=== PATIENT | female | born 1990 | race American Indian/Alaskan Native ===

== ENCOUNTER 2018-05-09 09:37 | Emergency (ER) | payer SELFPAY ==
[2018-05-09 09:47] VITALS: BP 103/59
--- NOTE | 2018-05-09 12:03 | Emergency Department Report ---
ED Extremity Problem HPI - General Chief complaint: Extremity Problem,Nontraumatic Stated complaint: LEFT HAND PAIN Time Seen by Provider: 05/09/18 11:34 Source: patient Mode of arrival: Ambulatory Limitations: No Limitations - History of Present Illness Initial comments: Patient is a 27-year-old black female who Injury to the left wrist the resulted in some tendons being injured. Patient was seeding her anymore hospital has stitches placed on the wound. Patient is unable to move the wrists and the accident occurred. Patient has a splint in place. Patient has run out of her pain medicines but also states that the splint is hurting. Patient has 10 out of 10 pain is throbbing pain in the left upper extremity. - Related Data Previous Rx's Medication Instructions Recorded Last Taken Type Ketorolac [Toradol] 10 mg PO Q6H PRN #14 tablet 05/09/18 Unknown Rx Allergies Allergy/AdvReac Type Severity Reaction Status Date / Time No Known Allergies Allergy Unverified 04/26/16 15:44 ED Review of Systems ROS: Stated complaint: LEFT HAND PAIN Other details as noted in HPI Comment: All other systems reviewed and negative ED Past Medical Hx - Past Medical History Previous Medical History?: No Additional medical history: chronic right knee pain - Surgical History Past Surgical History?: No Additional Surgical History: - Social History Smoking Status: Current Every Day Smoker Substance Use Type: None - Medications Home Medications: Home Medications Medication Instructions Recorded Confirmed Last Taken Type Ketorolac [Toradol] 10 mg PO Q6H PRN #14 tablet 05/09/18 Unknown Rx ED Physical Exam - General Limitations: No Limitations General appearance: alert, in no apparent distress - Head Head exam: Present: atraumatic, normocephalic - Eye Eye exam: Present: normal appearance - ENT ENT exam: Present: mucous membranes moist - Neck Neck exam: Present: normal inspection - Respiratory Respiratory exam: Present: normal lung sounds bilaterally. Absent: respiratory distress - Cardiovascular Cardiovascular Exam: Present: regular rate, normal rhythm. Absent: systolic murmur, diastolic murmur, rubs, gallop - GI/Abdominal GI/Abdominal exam: Present: soft, normal bowel sounds - Extremities Exam Extremities exam: Absent: normal inspection (patient's left wrist has a very bulky splint in place. Magan wrap is very tight on the hand. After unwrapping the dressing. Patient has a wound on the volar surface of the left wrist the wound is clean dry and intact. There is no surrounding erythema. Stitches are in place and are holding very well.) - Back Exam Back exam: Present: normal inspection - Neurological Exam Neurological exam: Present: alert, oriented X3 - Psychiatric Psychiatric exam: Present: normal affect, normal mood - Skin Skin exam: Present: warm, dry, intact, normal color. Absent: rash ED Course Vital Signs 05/09/18 09:44 Temperature 98.1 F Pulse Rate 72 Respiratory 18 Rate Blood Pressure 103/59 O2 Sat by Pulse 99 Oximetry ED Medical Decision Making - Medical Decision Making Patient had a history relief after undressing the patient's wound. A Ortho- Glass splint was applied patient states that she felt much improved. Because of tendon injury patient may have been having difficulty holding the very heavy plaster splint. Patient be given a Vicodin here in the emergency department and sent home with Toradol. Patient can follow-up with her orthopedic doctor regarding continuation of narcotics. Critical care attestation.: If time is entered above; I have spent that time in minutes in the direct care of this critically ill patient, excluding procedure time. ED Disposition Clinical Impression: Encounter for wound care Disposition: [id number]-01 TO HOME OR SELFCARE Is pt being admited?: No Does the pt Need Aspirin: No Condition: Stable Prescriptions: Ketorolac [Toradol] 10 mg PO Q6H PRN #14 tablet PRN Reason: Pain Referrals: PRIMARY CARE, [Primary Care Provider] - 3-5 Days
== END 2018-05-09 12:22 | disposition home or self-care (01) ==
LOC: ED 09:37
DX: M25.532 Pain in left wrist (principal); F17.200 Nicotine dependence, unspecified, uncomplicated
CPT/HCPCS: 99282

== ENCOUNTER 2018-08-16 10:45 | Emergency (ER) | payer SELFPAY ==
[2018-08-16] MEDS ORDERED: ZOFRAN ODT PO ONE (12:52)
--- NOTE | 2018-08-16 12:56 | Emergency Department Report ---
ED General Adult HPI - General Chief complaint: Upper Respiratory Infection Stated complaint: HEAD/THROAT/BACK/STOMACH PAIN Time Seen by Provider: 08/16/18 12:52 Source: patient Mode of arrival: Ambulatory Limitations: No Limitations - History of Present Illness Initial comments: Patient reports sudden onset of chills, headache, N/V/D, abdominal pain, sore throat and cough that started two days ago MD Complaint: viral or bacteria syndrome Onset/Timin -: days(s) Location: chest (throat), back, abdomen Radiation: abdomen Severity scale (0 -10): 9 Quality: other (throbbing) Consistency: constant Improves with: none Worsens with: movement Associated Symptoms: cough, fever/chills, headaches, nausea/vomiting. denies: confusion, chest pain, diaphoresis, loss of appetite, malaise, rash, seizure, shortness of breath, syncope, weakness Treatments Prior to Arrival: NSAID - Related Data Previous Rx's Medication Instructions Recorded Last Taken Type Ketorolac [Toradol] 10 mg PO Q6H PRN #14 tablet 05/09/18 Unknown Rx Acetaminophen/Codeine [Tylenol 1 tab PO Q6H PRN #10 tab 08/16/18 Unknown Rx /Codeine # 3 tab] Benzonatate [Tessalon Perles] 100 mg PO Q8HR #15 capsule 08/16/18 Unknown Rx Nitrofurantoin Monohyd/M-Cryst 100 mg PO BID #14 capsule 08/16/18 Unknown Rx [Macrobid 100 mg Capsule] Allergies Allergy/AdvReac Type Severity Reaction Status Date / Time No Known Allergies Allergy Unverified 04/26/16 15:44 ED Review of Systems ROS: Stated complaint: HEAD/THROAT/BACK/STOMACH PAIN Other details as noted in HPI Constitutional: chills, fever. denies: malaise, weakness Eyes: denies: eye pain, eye discharge, vision change ENT: throat pain. denies: ear pain Respiratory: cough. denies: orthopnea, shortness of breath, SOB with exertion, SOB at rest, stridor, wheezing Cardiovascular: denies: chest pain, palpitations, dyspnea on exertion, orthopnea , edema, syncope, paroxysmal nocturnal dyspnea Endocrine: no symptoms reported Gastrointestinal: abdominal pain, nausea, diarrhea Genitourinary: denies: urgency, dysuria, discharge Musculoskeletal: denies: back pain, joint swelling, arthralgia Skin: denies: rash, lesions Neurological: headache. denies: weakness, paresthesias Psychiatric: denies: anxiety, depression Hematological/Lymphatic: denies: easy bleeding, easy bruising ED Past Medical Hx - Past Medical History Additional medical history: chronic right knee pain - Surgical History Additional Surgical History: ,left hand - Social History Smoking Status: Never Smoker Substance Use Type: None - Medications Home Medications: Home Medications Medication Instructions Recorded Confirmed Last Taken Type Ketorolac [Toradol] 10 mg PO Q6H PRN #14 tablet 05/09/18 Unknown Rx Acetaminophen/Codeine [Tylenol 1 tab PO Q6H PRN #10 tab 08/16/18 Unknown Rx /Codeine # 3 tab] Benzonatate [Tessalon Perles] 100 mg PO Q8HR #15 capsule 08/16/18 Unknown Rx Nitrofurantoin Monohyd/M-Cryst 100 mg PO BID #14 capsule 08/16/18 Unknown Rx [Macrobid 100 mg Capsule] ED Physical Exam - General Limitations: No Limitations General appearance: alert, in no apparent distress - Head Head exam: Present: atraumatic, normocephalic - Eye Eye exam: Present: normal appearance, PERRL, EOMI Pupils: Present: normal accommodation - ENT ENT exam: Present: normal exam, normal orophraynx, mucous membranes moist, TM's normal bilaterally, normal external ear exam - Expanded ENT Exam Expanded Ear exam: Present: normal external inspection. Absent: auricular hematoma, auricular trauma Mouth exam: Present: normal external inspection, tongue normal. Absent: drooling, tongue elevation, laceration Teeth exam: Present: normal inspection. Absent: dental caries, fractured tooth #, dental tenderness #, gingival enlargement Throat exam: Positive: normal inspection. Negative: tonsillar erythema, tonsillomegaly, tonsillar exudate, R peritonsillar mass, L peritonsillar mass - Neck Neck exam: Present: normal inspection, full ROM. Absent: tenderness, meningismus, lymphadenopathy, thyromegaly - Respiratory Respiratory exam: Present: normal lung sounds bilaterally. Absent: respiratory distress, wheezes, rales, rhonchi, stridor, chest wall tenderness, accessory muscle use, decreased breath sounds, prolonged expiratory - Cardiovascular Cardiovascular Exam: Present: normal rhythm, tachycardia. Absent: systolic murmur, diastolic murmur, rubs, gallop - GI/Abdominal GI/Abdominal exam: Present: soft, tenderness (suprapubic), normal bowel sounds. Absent: guarding, rebound, rigid, diminished bowel sounds, hyperactive bowel sounds, hypoactive bowel sounds, organomegaly, mass, bruit, pulsatile mass - Extremities Exam Extremities exam: Present: normal inspection, full ROM, normal capillary refill. Absent: tenderness, pedal edema, joint swelling - Back Exam Back exam: Present: normal inspection, full ROM. Absent: tenderness, CVA tenderness (R), CVA tenderness (L), muscle spasm, paraspinal tenderness, vertebral tenderness, rash noted - Neurological Exam Neurological exam: Present: alert, oriented X3, CN II-XII intact, normal gait, reflexes normal. Absent: motor sensory deficit - Psychiatric Psychiatric exam: Present: normal affect, normal mood - Skin Skin exam: Present: warm, dry, intact, normal color. Absent: rash ED Course Vital Signs 08/16/18 08/16/18 11:13 17:43 Temperature 98.5 F 97.1 F L Pulse Rate 113 H 78 Respiratory 20 20 Rate Blood Pressure 105/64 Blood Pressure 118/73 [Left] O2 Sat by Pulse 100 96 Oximetry - Reevaluation(s) Reevaluation #1: 08/16/18 12:57 antiemetic, analgesic, laboratory and radiology studies ordered 08/16/18 13:00 ED Medical Decision Making - Lab Data Result diagrams: 08/16/18 12:59 08/16/18 12:59 Lab Results 08/16/18 08/16/18 08/16/18 Range/Units 12:45 12:59 12:59 WBC 11.2 H (4.5-11.0) K/mm3 RBC 4.09 (3.65-5.03) M/mm3 Hgb 11.3 (10.1-14.3) gm/dl Hct 34.6 (30.3-42.9) % MCV 85 (79-97) fl MCH 28 (28-32) pg MCHC 33 (30-34) % RDW 17.4 H (13.2-15.2) % Plt Count 310 (140-440) K/mm3 Lymph % (Auto) 14.3 (13.4-35.0) % [place] % (Auto) 5.6 (0.0-7.3) % Eos % (Auto) 0.7 (0.0-4.3) % Baso % (Auto) 0.2 (0.0-1.8) % Lymph # 1.6 (1.2-5.4) K/mm3 [place] # 0.6 (0.0-0.8) K/mm3 Eos # 0.1 (0.0-0.4) K/mm3 Baso # 0.0 (0.0-0.1) K/mm3 Seg Neutrophils % 79.2 H (40.0-70.0) % Seg Neutrophils # 8.9 H (1.8-7.7) K/mm3 Sodium 137 (137-145) mmol/L Potassium 3.5 L (3.6-5.0) mmol/L Chloride 101.3 (98-107) mmol/L Carbon Dioxide 23 (22-30) mmol/L Anion Gap 16 mmol/L BUN 9 (7-17) mg/dL Creatinine 0.6 L (0.7-1.2) mg/dL Estimated GFR > 60 ml/min BUN/Creatinine Ratio 15 % Glucose 102 H (65-100) mg/dL Calcium 8.9 (8.4-10.2) mg/dL Total Bilirubin 0.30 (0.1-1.2) mg/dL AST 11 (5-40) units/L ALT 7 (7-56) units/L Alkaline Phosphatase 45 (35-129) units/L Total Protein 7.4 (6.3-8.2) g/dL Albumin 4.2 (3.9-5) g/dL Albumin/Globulin Ratio 1.3 % Lipase 10 L (13-60) units/L Urine Color Yellow (Yellow) Urine Turbidity Cloudy (Clear) Urine pH 7.0 (5.0-7.0) Ur Specific [place] 1.023 (1.003-1.030) Urine Protein 30 mg/dl (Negative) mg/dL Urine Glucose (UA) Neg (Negative) mg/dL Urine Ketones Neg (Negative) mg/dL Urine Blood Lg (Negative) Urine Nitrite Pos (Negative) Urine Bilirubin Neg (Negative) Urine Urobilinogen < 2.0 (<2.0) mg/dL Ur Leukocyte Esterase Lg (Negative) Urine WBC (Auto) 54.0 H (0.0-6.0) /HPF Urine RBC (Auto) 102.0 (0.0-6.0) /HPF U Epithel Cells (Auto) 33.0 H (0-13.0) /HPF Urine Bacteria (Auto) 3+ (Negative) /HPF Urine Mucus 3+ /HPF Urine Yeast (Budding) Few /HPF Vital Signs 08/16/18 08/16/18 11:13 17:43 Temperature 98.5 F 97.1 F L Pulse Rate 113 H 78 Respiratory 20 20 Rate Blood Pressure 105/64 Blood Pressure 118/73 [Left] O2 Sat by Pulse 100 96 Oximetry - Radiology Data Radiology results: image reviewed FINAL REPORT PROCEDURE: XR CHEST ROUTINE 2V TECHNIQUE: PA and lateral views were obtained. HISTORY: cough COMPARISON: No prior studies are available for comparison. FINDINGS: The lungs are clear. No infiltrates masses effusions or pneumothorax are visualized. Heart size and pulmonary vasculature appear normal. No acute bone abnormalities are seen. IMPRESSION: Negative exam. - Medical Decision Making During the course of ED, antiemetic, analgesic, laboratory and radiology studies ordered. The chest xray was negative for cardiopulmonary abnormality. Urinalysis WBCs' was elevated. Patient reports pain scale decreased to 3/10. She was sent home with prescriptions for Macrobid, Tessalon Perles, and Tylenol #3, instructed to follow up with the selective referral given at discharge. She verbalized understanding - Differential Diagnosis UTI, URI, Influenza Critical care attestation.: If time is entered above; I have spent that time in minutes in the direct care of this critically ill patient, excluding procedure time. ED Disposition Clinical Impression: UTI (urinary tract infection) Qualifiers: Urinary tract infection type: site unspecified Hematuria presence: without hematuria Qualified Code(s): N39.0 - Urinary tract infection, site not specified URI (upper respiratory infection) Qualifiers: URI type: unspecified URI Qualified Code(s): J06.9 - Acute upper respiratory infection, unspecified Disposition: - TO HOME OR SELFCARE Is pt being admited?: No Does the pt Need Aspirin: No Condition: Stable Instructions: Urinary Tract Infection in Women (ED), Upper Respiratory Infection (ED) Additional Instructions: Take medication as directed. No drinking or driving while taking medication. Follow up with selective referral given at discharge Prescriptions: Acetaminophen/Codeine [Tylenol /Codeine # 3 tab] 1 tab PO Q6H PRN #10 tab PRN Reason: Pain, Moderate (4-6) Benzonatate [Tessalon Perles] 100 mg PO Q8HR #15 capsule Nitrofurantoin Monohyd/M-Cryst [Macrobid 100 mg Capsule] 100 mg PO BID #14 capsule Referrals: PRIMARY CARE, [Primary Care Provider] - 3-5 Days Forms: Work/School Release Form(ED) Time of Disposition: 17:16
[2018-08-16] MEDS ORDERED: TORADOL IM ONE (13:00)
[2018-08-16 13:12] LABS: Basophils % (Auto) 0.2 % (0.0-1.8); Eosinophils # (Auto) 0.1 K/mm3 (0.0-0.4); Eosinophils % (Auto) 0.7 % (0.0-4.3); Hematocrit 34.6 % (30.3-42.9); Hemoglobin 11.3 gm/dl (10.1-14.3); Lymphocytes # (Auto) 1.6 K/mm3 (1.2-5.4); Lymphocytes % (Auto) 14.3 % (13.4-35.0); Mean Corpuscular HGB Conc 33 % (30-34); Mean Corpuscular Hemoglobin 28 pg (28-32); Mean Corpuscular Volume 85 fl (79-97); Monocytes # (Auto) 0.6 K/mm3 (0.0-0.8); Monocytes % (Auto) 5.6 % (0.0-7.3); Platelet Count 310 K/mm3 (140-440); Red Blood Count 4.09 M/mm3 (3.65-5.03); Red Cell Distribution Width 17.4 % (13.2-15.2)
[2018-08-16 13:22] LABS: Bacteria,Urine 3+ /HPF (Negative); Bilirubin,Urine NEG (Negative); Blood,Urine LG (Negative); Color,Urine Yellow (Yellow); Mucus,Urine 3+ /HPF; Urobilinogen,Urine < 2.0 mg/dL (<2.0)
[2018-08-16 13:33] LABS: Alanine Aminotransferase 7 units/L (7-56); Albumin 4.2 g/dL (3.9-5); BUN/Creatinine Ratio 15; Blood Urea Nitrogen 9 mg/dL (7-17); Calcium 8.9 mg/dL (8.4-10.2); Hemolysis Index 15; Lipase 10 units/L (13-60)
[2018-08-16 16:04] LABS: HCG Qualitative,Urine Negative (Negative)
--- NOTE | 2018-08-16 17:05 | XRay Report ---
FINAL REPORT PROCEDURE: XR CHEST ROUTINE 2V TECHNIQUE: PA and lateral views were obtained. HISTORY: cough COMPARISON: No prior studies are available for comparison. FINDINGS: The lungs are clear. No infiltrates masses effusions or pneumothorax are visualized. Heart size and pulmonary vasculature appear normal. No acute bone abnormalities are seen. IMPRESSION: Negative exam.
[2018-08-16 17:44] VITALS: BP 118/73
== END 2018-08-16 17:44 | disposition home or self-care (01) ==
LOC: ED 10:45
DX: J06.9 Acute upper respiratory infection, unspecified (principal); N39.0 Urinary tract infection, site not specified; G89.29 Other chronic pain
CPT/HCPCS: 36415; 71046; 80053; 81001; 81025; 83690; 85025; 96372; 99284; J1885; Q0162

== ENCOUNTER 2019-01-06 11:39 | Emergency (ER) | payer OTHER ==
--- NOTE | 2019-01-06 11:52 | Emergency Department Report ---
Chief Complaint: Vaginal Bleeding Stated Complaint: BLEEDING FOR 2WEEKS/ABD PAIN Time Seen by Provider: 01/06/19 11:48 - HPI History of Present Illness: This is a 28 y.o. female that presents with abdominal pain and vaginal bleeding. Patient states her period started 12/21/18 and she have been bleeding every since. She reports pain as sharp and cramping sensation. LMP 12/21/18, A1. - ROS Review of Systems: lower abdominal pain and vaginal bleeding. - Exam Vital Signs: Vital Signs 01/06/19 11:48 Temperature 97.6 F Pulse Rate 70 Respiratory 20 Rate Blood Pressure 127/76 O2 Sat by Pulse 100 Oximetry MSE screening note: Focused history and physical exam performed. Due to findings the following was ordered: labs ED Disposition for MSE Condition: Stable
[2019-01-06 13:54] LABS: Bilirubin,Urine NEG (Negative); Blood,Urine LG (Negative); Color,Urine Yellow (Yellow); Mucus,Urine 3+ /HPF
[2019-01-06 15:14] LABS: Basophils # (Auto) 0.1 K/mm3 (0.0-0.1); Basophils % (Auto) 1.1 % (0.0-1.8); Eosinophils # (Auto) 0.1 K/mm3 (0.0-0.4); Eosinophils % (Auto) 2.5 % (0.0-4.3); Hematocrit 31.9 % (30.3-42.9); Hemoglobin 11.2 gm/dl (10.1-14.3); Lymphocytes # (Auto) 2.3 K/mm3 (1.2-5.4); Lymphocytes % (Auto) 45.7 % (13.4-35.0); Mean Corpuscular HGB Conc 35 % (30-34); Mean Corpuscular Volume 89 fl (79-97); Monocytes # (Auto) 0.5 K/mm3 (0.0-0.8); Monocytes % (Auto) 9.2 % (0.0-7.3); Platelet Count 284 K/mm3 (140-440); Red Cell Distribution Width 15.5 % (13.2-15.2)
[2019-01-06 15:26] LABS: BUN/Creatinine Ratio 15; Blood Urea Nitrogen 12 mg/dL (7-17); Calcium 8.8 mg/dL (8.4-10.2); Hemolysis Index 15
--- NOTE | 2019-01-06 15:26 | Emergency Department Report ---
ED Female HPI - General Chief complaint: Vaginal Bleeding Stated complaint: BLEEDING FOR 2WEEKS/ABD PAIN Time Seen by Provider: 01/06/19 11:48 Source: patient Mode of arrival: Ambulatory Limitations: No Limitations - History of Present Illness Initial comments: This is a 28-year-old female nontoxic, well nourished in appearance, no acute signs of distress presents to the ED with c/o of vaginal bleeding x1 month. LMP 12/21/2018. Patient also stated has some pelvic cramping pain. Denies any radiation. Patient denies any vaginal discharge or foul odor. Patient denies any nausea, vomiting, chest pain, shortness of breathe, fever, chills, headache, stiff neck, numbness, tingling. Patient stated goes about 4-5 tampons a day. Patient denies any urinary symptoms. Patient denies any allergies or PMH. MD Complaint: vaginal bleeding -: month(s) (1) Severity: mild Severity scale (0 -10): 3 Quality: cramping Consistency: constant Improves with: none Worsens with: none Are you Now?: No Last Menstrual Period: 12/21/18 EDC: 09/27/19 Associated Symptoms: vaginal bleeding. denies: vaginal discharge, abdominal pain, nausea/vomiting, fever/chills, headaches, loss of appetite, dysuria, hematuria, rash, seizure, shortness of breath, syncope, weakness - Related Data Previous Rx's Medication Instructions Recorded Last Taken Type Ketorolac [Toradol] 10 mg PO Q6H PRN #14 tablet 05/09/18 Unknown Rx Acetaminophen/Codeine [Tylenol 1 tab PO Q6H PRN #10 tab 08/16/18 Unknown Rx /Codeine # 3 tab] Benzonatate [Tessalon Perles] 100 mg PO Q8HR #15 capsule 08/16/18 Unknown Rx Nitrofurantoin Monohyd/M-Cryst 100 mg PO BID #14 capsule 08/16/18 Unknown Rx [Macrobid 100 mg Capsule] Naproxen [Naprosyn] 500 mg PO TID #12 tablet 10/16/18 Unknown Rx methOCARBAMOL [Robaxin TAB] 500 mg PO BID #10 tab 10/16/18 Unknown Rx Ibuprofen [Motrin] 600 mg PO Q8H PRN #20 tablet 01/06/19 Unknown Rx Allergies Allergy/AdvReac Type Severity Reaction Status Date / Time No Known Allergies Allergy Unverified 04/26/16 15:44 ED Review of Systems ROS: Stated complaint: BLEEDING FOR 2WEEKS/ABD PAIN Other details as noted in HPI Constitutional: denies: chills, fever Eyes: denies: eye pain, eye discharge, vision change ENT: denies: ear pain, throat pain Respiratory: denies: cough, shortness of breath, wheezing Cardiovascular: denies: chest pain, palpitations Endocrine: no symptoms reported Gastrointestinal: denies: abdominal pain, nausea, diarrhea Genitourinary: abnormal menses. denies: urgency, dysuria, discharge Musculoskeletal: denies: back pain, joint swelling, arthralgia Skin: denies: rash, lesions Neurological: denies: headache, weakness, paresthesias Psychiatric: denies: anxiety, depression Hematological/Lymphatic: denies: easy bleeding, easy bruising ED Past Medical Hx - Past Medical History Previous Medical History?: No Additional medical history: chronic right knee pain - Surgical History Past Surgical History?: Yes Additional Surgical History: ,left hand - Social History Smoking Status: Never Smoker Substance Use Type: None - Medications Home Medications: Home Medications Medication Instructions Recorded Confirmed Last Taken Type Ketorolac [Toradol] 10 mg PO Q6H PRN #14 tablet 05/09/18 Unknown Rx Acetaminophen/Codeine [Tylenol 1 tab PO Q6H PRN #10 tab 08/16/18 Unknown Rx /Codeine # 3 tab] Benzonatate [Tessalon Perles] 100 mg PO Q8HR #15 capsule 08/16/18 Unknown Rx Nitrofurantoin Monohyd/M-Cryst 100 mg PO BID #14 capsule 08/16/18 Unknown Rx [Macrobid 100 mg Capsule] Naproxen [Naprosyn] 500 mg PO TID #12 tablet 10/16/18 Unknown Rx methOCARBAMOL [Robaxin TAB] 500 mg PO BID #10 tab 10/16/18 Unknown Rx Ibuprofen [Motrin] 600 mg PO Q8H PRN #20 tablet 01/06/19 Unknown Rx ED Physical Exam - General Limitations: No Limitations General appearance: alert, in no apparent distress - Head Head exam: Present: atraumatic, normocephalic - Eye Eye exam: Present: normal appearance - Neck Neck exam: Present: normal inspection, full ROM. Absent: tenderness, meningismus, lymphadenopathy - Respiratory Respiratory exam: Present: normal lung sounds bilaterally. Absent: respiratory distress, wheezes, rales, rhonchi, stridor, chest wall tenderness, accessory muscle use, decreased breath sounds, prolonged expiratory - Cardiovascular Cardiovascular Exam: Present: regular rate, normal rhythm, normal heart sounds. Absent: bradycardia, tachycardia, irregular rhythm, systolic murmur, diastolic murmur, rubs, gallop - GI/Abdominal GI/Abdominal exam: Present: soft, normal bowel sounds. Absent: distended, tenderness, guarding, rebound, rigid, diminished bowel sounds - External exam: Present: normal external exam, other (batch or continuous still operator Sally RN present during exam). Absent: erythema, swelling, lesions, lacerations, ecchymosis, bleeding Speculum exam: Present: vaginal bleeding (slight), other (batch or continuous still operator Sally RN present during exam). Absent: erythema, vaginal discharge, cervical discharge, foreign body, tissue, laceration Bi-manual exam: Present: normal bi-manual exam, other (batch or continuous still operator Sally RN present during exam). Absent: cervical motion tendernes, adnexal tenderness, adnexal mass, uterine enlargement, uterine tenderness - Extremities Exam Extremities exam: Present: normal inspection, full ROM - Back Exam Back exam: Present: normal inspection, full ROM. Absent: tenderness, CVA tenderness (R), CVA tenderness (L), muscle spasm, paraspinal tenderness, vertebral tenderness, rash noted - Neurological Exam Neurological exam: Present: alert, oriented X3 - Psychiatric Psychiatric exam: Present: normal affect, normal mood - Skin Skin exam: Present: warm, dry, intact, normal color. Absent: rash ED Course Vital Signs 01/06/19 11:48 Temperature 97.6 F Pulse Rate 70 Respiratory 20 Rate Blood Pressure 127/76 O2 Sat by Pulse 100 Oximetry - Reevaluation(s) Reevaluation #1: 01/06/19 15:27 Patient is speaking in full sentences with no signs of distress noted. ED Medical Decision Making - Lab Data Result diagrams: 01/06/19 14:42 01/06/19 14:42 - Medical Decision Making This is a 28-year-old female that presents with dysfunctional uterine bleeding. Patient is stable and was examined by me. There is no abdominal tenderness. Negative signs of symptoms of appendicitis. Labs obtained. UA obtained. US of pelvic/transvaginal obtained and dictated by the radiologist. Patient is notified of the report with no questions noted by the patient. Vital signs are stable prior to discharge. Patient was notified of strict precautions of appendicitis symptoms and to return to the ED if symptoms occurs as soon as possible. Patient was also instructed to Follow-up with OBGYN doctor in 3-5 days or if symptoms worsen and continue return to emergency room as soon as possible. At time of discharge, the patient does not seem toxic or ill in appearance. No acute signs of distress noted. Patient agrees to discharge treatment plan of care. No further questions noted by the patient. Critical care attestation.: If time is entered above; I have spent that time in minutes in the direct care of this critically ill patient, excluding procedure time. ED Disposition Clinical Impression: Dysfunctional uterine bleeding, Uterus, adenomyosis Disposition: TO HOME OR SELFCARE Is pt being admited?: No Does the pt Need Aspirin: No Condition: Stable Instructions: Dysfunctional Uterine Bleeding (ED) Additional Instructions: Follow-up with OBGYN doctor in 3-5 days or if symptoms worsen and continue return to emergency room as soon as possible. Prescriptions: Ibuprofen [Motrin] 600 mg PO Q8H PRN #20 tablet PRN Reason: Pain Referrals: VALENTNIE FRANCO MD [Primary Care Provider] - 3-5 Days PRIMARY CAREMD [Referring] - 3-5 Days CORNEL CORONADO MD [Staff Physician] - 3-5 Days [facility] [Provider Group] - 3-5 Days Forms: Work/School Release Form(ED)
--- NOTE | 2019-01-06 18:32 | Ultrasound Report ---
PROCEDURE: US TRANSVAGINAL, US PELVIC COMPLETE TECHNIQUE: Transvesical and endovaginal pelvic sonographic imaging was performed HISTORY: vag bleeding , 28 year-old female with pelvic pain, dysfunctional uterine bleeding, 4, LMP 12/19/2018 COMPARISONS: None FINDINGS: Images demonstrate normal anteverted uterus measuring 0.9 x 5.3 x 6.3 cm. Myometrium is diffusely het erogeneous. There is no evidence for subendometrial cyst formation or venetian blind appearance. Otero roberto, the junctional zone along the posterior aspect of the endometrial stripe is ill-defined and slig htly widened. Smoothly marginated endometrial stripe is diffusely echogenic and measures 6 mm. Right ovary measures 4.1 x 1.8 x 3.7 cm, within normal limits. Multiple small follicles. Normal color flow. Left ovary measures 3.9 x 2.4 x 3.8 cm, within normal limits. Multiple small follicles, normal color flow. IMPRESSION: Findings suggest diffuse uterine adenomyomatosis. No focal fibroid. Consider MRI pelvis. Normal appearance of the ovaries. Normal endometrial stripe thickness.. This document is electronically signed by Viktoria Rodriguez MD., January 06 2019 06:30:34 PM ET
[2019-01-06 18:49] VITALS: BP 111/73
== END 2019-01-06 18:51 | disposition home or self-care (01) ==
LOC: ED 11:39
DX: N93.8 Other specified abnormal uterine and vaginal bleeding (principal); N80.0 Endometriosis of uterus; M25.561 Pain in right knee; G89.29 Other chronic pain; Z79.899 Other long term (current) drug therapy
CPT/HCPCS: 36415; 76830; 76856; 80048; 81001; 84702; 85025; 86850; 86900; 86901

== ENCOUNTER 2019-01-11 10:31 | Emergency (ER) | payer OTHER ==
--- NOTE | 2019-01-11 11:43 | Emergency Department Report ---
HPI - General Chief Complaint: Abdominal Pain Time Seen by Provider: 01/11/19 11:14 - HPI HPI: This is a 28-year-old female who returns to ED complaining of about 3-4 weeks of moderate vaginal bleeding with some mild abdominal cramps. Patient states that she was seen here last week for similar symptoms. Patient states that she was told to return to ED sooner worsen. Patient states that the past couple of days she has had slightly heavier bleeding. Patient states that she is using about 3 tampons per day when she normally uses. Respiratory. Patient states she has an appointment with PROFESSOR OF EDUCATION but not for another 2 weeks. She denies any trauma, fever, chills, nausea or vomiting or any other symptoms. ED Past Medical Hx - Past Medical History Additional medical history: chronic right knee pain - Surgical History Additional Surgical History: ,left hand - Social History Smoking Status: Never Smoker Substance Use Type: None - Medications Home Medications: Home Medications Medication Instructions Recorded Confirmed Last Taken Type Ketorolac [Toradol] 10 mg PO Q6H PRN #14 tablet 05/09/18 Unknown Rx Acetaminophen/Codeine [Tylenol 1 tab PO Q6H PRN #10 tab 08/16/18 Unknown Rx /Codeine # 3 tab] Benzonatate [Tessalon Perles] 100 mg PO Q8HR #15 capsule 08/16/18 Unknown Rx Nitrofurantoin Monohyd/M-Cryst 100 mg PO BID #14 capsule 08/16/18 Unknown Rx [Macrobid 100 mg Capsule] Naproxen [Naprosyn] 500 mg PO TID #12 tablet 10/16/18 Unknown Rx methOCARBAMOL [Robaxin TAB] 500 mg PO BID #10 tab 10/16/18 Unknown Rx Ibuprofen [Motrin] 600 mg PO Q8H PRN #20 tablet 01/06/19 Unknown Rx medroxyPROGESTERone ACETATE 10 mg PO DAILY #10 tablet 01/11/19 Unknown Rx [Provera] traMADol [Ultram 50 MG tab] 50 mg PO Q6HR #20 tablet 01/11/19 Unknown Rx ED Review of Systems ROS: Stated complaint: ABD PAIN/BLEEDING Other details as noted in HPI Comment: All other systems reviewed and negative Physical Exam - Physical Exam Physical Exam: GENERAL: Alert and oriented x3, no apparent distress, Normal Gait, atraumatic. HEAD: Head is normocephalic and a-traumatic. LUNGS: Symetrical with respiration, No wheezing, no rales or crackles, CTAB. HEART: S1, S2 present, regular rate and rhythm without murmur, no rubs, no gallops. Non tender to palpation ABDOMEN: No organomegaly was noted,Positive bowel sounds, soft, and non- distended. Nontender to palpation on all Quadrants, NO CVA tenderness. BACK: Full range of motion, no spinal tenderness, nontender to palpation. SKIN: Warm and dry, No lesions, No ulceration or induration present. ED Medical Decision Making - Radiology Data Radiology results: report reviewed, image reviewed FINDINGS: Images demonstrate normal anteverted uterus measuring 0.9 x 5.3 x 6.3 cm. Myometrium is diffusely heterogeneous. There is no evidence for subendometrial cyst formation or venetian blind appearance. However, the junctional zone along the posterior aspect of the endometrial stripe is ill-defined and slightly widened. Smoothly marginated endometrial stripe is diffusely echogenic and measures 6 mm. Right ovary measures 4.1 x 1.8 x 3.7 cm, within normal limits. Multiple small follicles. Normal color flow. Left ovary measures 3.9 x 2.4 x 3.8 cm, within normal limits. Multiple small follicles, normal color flow. IMPRESSION: Findings suggest diffuse uterine adenomyomatosis. No focal fibroid. Consider MRI pelvis. Normal appearance of the ovaries. Normal endometrial stripe thickness.. This document is electronically signed by Gabrielle Ackerman MD., January 06 2019 06:30:34 PM ET Transcribed By: MP Dictated By: GABRIELLE ACKERMAN Electronically Authenticated By: GABRIELLE ACKERMAN Signed Date/Time: 01/06/191831 - Medical Decision Making 28-year-old female presents with dysfunctional uterine breathing due to adenomyosis Patient is subsequently follow-up with the PROFESSOR OF EDUCATION 2 weeks. Signs discussed the patient will prevent Provera challenge her to stop the bleeding. Discussed with her that follow-up is still warranted. Discussed bleeding precautions with the patient Vital signs are normal patient is in no acute distress. Critical care attestation.: If time is entered above; I have spent that time in minutes in the direct care of this critically ill patient, excluding procedure time. ED Disposition Clinical Impression: Uterus, adenomyosis, Dysfunctional uterine bleeding Disposition: - TO HOME OR SELFCARE Is pt being admited?: No Does the pt Need Aspirin: No Condition: Stable Instructions: Abdominal Pain (ED) Additional Instructions: Make sure to follow up with the follow-up [facility]UC[facility] physician as discussed. Take all your medications as you've been prescribed. If you have any worsening symptoms or develop new symptoms please return to ED immediately. Prescriptions: medroxyPROGESTERone ACETATE [Provera] 10 mg PO DAILY #10 tablet traMADol [Ultram 50 MG tab] 50 mg PO Q6HR #20 tablet Referrals: VALENTINE FRANCO MD [Primary Care Provider] - 3-5 Days Forms: Work/School Release Form(ED) Time of Disposition: 12:07
== END 2019-01-11 12:23 | disposition home or self-care (01) ==
LOC: ED 10:31
DX: N93.8 Other specified abnormal uterine and vaginal bleeding (principal); M25.561 Pain in right knee; G89.29 Other chronic pain
CPT/HCPCS: 99281

== ENCOUNTER 2020-11-21 11:35 | Emergency (ER) | payer OTHER ==
[2020-11-21 11:43] VITALS: BP 121/67
--- NOTE | 2020-11-21 11:44 | Emergency Department Report ---
Minor Respiratory - HPI Chief Complaint: Sore Throat Stated Complaint: CHEST/BACK PAIN/NAUSEA/FEVER Time Seen by Provider: 11/21/20 11:42 Duration: 2 Days Pain Location: Throat, Chest Severity: mild Minor Respiratory: Yes Sore Throat, Yes Able to Tolerate Fluids, No Rhinorrhea, No Ear Pain, No Cough, No Sick Contacts, No Hemoptysis, No Chest Pain, No Shortness of Breath, No Fever Other History: Patient is a 30-year-old -[place] female that comes to the ER today with complaints of sore throat, body aches and concerns due to decreased sense of taste and smell. She has not had any Covid testing. She has no known Covid exposure. She endorses some shortness of breath with activity. No fever at home. She is ambulatory nontoxic [id number] in triage with normal vital signs. Patient is otherwise healthy and on no home medications. Patient is not morbidly obese. ED Review of Systems ROS: Stated complaint: CHEST/BACK PAIN/NAUSEA/FEVER Other details as noted in HPI Comment: All other systems reviewed and negative ED Past Medical Hx - Past Medical History Previous Medical History?: No Additional medical history: chronic right knee pain - Surgical History Past Surgical History?: Yes Additional Surgical History: ,left hand - Social History Smoking Status: Never Smoker Substance Use Type: Alcohol, Marijuana - Medications Home Medications: Home Medications Medication Instructions Recorded Confirmed Last Taken Type Ketorolac [Toradol] 10 mg PO Q6H PRN #14 tablet 05/09/18 Unknown Rx Acetaminophen/Codeine [Tylenol 1 tab PO Q6H PRN #10 tab 08/16/18 Unknown Rx /Codeine # 3 tab] Benzonatate [Tessalon Perles] 100 mg PO Q8HR #15 capsule 08/16/18 Unknown Rx Nitrofurantoin Monohyd/M-Cryst 100 mg PO BID #14 capsule 08/16/18 Unknown Rx [Macrobid 100 mg Capsule] Naproxen [Naprosyn] 500 mg PO TID #12 tablet 10/16/18 Unknown Rx methOCARBAMOL [Robaxin TAB] 500 mg PO BID #10 tab 10/16/18 Unknown Rx Ibuprofen [Motrin] 600 mg PO Q8H PRN #20 tablet 01/06/19 Unknown Rx medroxyPROGESTERone ACETATE 10 mg PO DAILY #10 tablet 01/11/19 Unknown Rx [Provera] traMADoL [Ultram 50 MG tab] 50 mg PO Q6HR #20 tablet 01/11/19 Unknown Rx Albuterol Mdi (or & Nicu Only) 2 puff IH QID PRN #8.5 gram 10/27/19 Unknown Rx [ProAir HFA Inhaler] Azithromycin [Zithromax Z-EILEEN] 0 mg PO DAILY #6 tab 10/27/19 Unknown Rx Benzonatate [Tessalon Perles] 100 mg PO Q8HR #30 capsule 10/27/19 Unknown Rx Cyclobenzaprine [Flexeril] 10 mg PO TID PRN #10 tablet 10/27/19 Unknown Rx Ibuprofen [Motrin 800 MG tab] 800 mg PO Q8HR PRN #20 tablet 10/27/19 Unknown Rx Ondansetron [Zofran ODT TAB] 8 mg PO Q8HR #20 tab.rapdis 10/27/19 Unknown Rx Amoxicillin [Trimox CAP] 500 mg PO BID #20 capsule 11/21/20 Unknown Rx Minor Respiratory Exam - Exam General: Vital signs noted. No distress. Alert and acting appropriately. HEENT: Yes Pharyngeal Erythema, Yes Pharyngeal Exudates, Yes Moist Mucous Membranes, No Rhinorrhea, No Conjuctival Injection, No Frontal Tenderness, No Maxillary Tenderness Ear: Neither TM Bulge, Neither TM Erythema, Neither EAC Pain, Neither EAC Discharge Neck: Yes Supple, No Adenopathy Lungs: Yes Good Air Exchange, No Wheezes, No Ronchi, No Stridor, No Cough, No Labored Respirations, No Retractions, No Use of Accessory Muscles, No Other Abnormal Lung Sounds Heart: Yes Regular, No Murmur Abdomen: Yes Normal Bowel Sounds, No Tenderness, No Peritoneal Signs Skin: No Rash, No Edema Neurologic: Alert and oriented, no deficits. Musculoskeletal: Unremarkable. ED Course Vital Signs 11/21/20 11:40 Temperature 97.9 F Pulse Rate 68 Respiratory 20 Rate Blood Pressure 121/67 O2 Sat by Pulse 98 Oximetry ED Medical Decision Making - Radiology Data Radiology results: report reviewed, image reviewed - Medical Decision Making X-ray noted. Patient ambulatory. Vital Signs 11/21/20 11:40 Temperature 97.9 F Pulse Rate 68 Respiratory 20 Rate Blood Pressure 121/67 O2 Sat by Pulse 98 Oximetry Normal vital signs. Taking p.o. Treating for her exudative pharyngitis. Patient being discharged home with discharge plan of care. Patient understands that she needs to follow-up with her primary care and/or urgent care for definitive rapid Covid testing. She has been instructed on quarantining. She has been instructed on self-care, treatment of symptoms, hydration diet and activity. She verbalizes understanding. - Differential Diagnosis uri ro covid Critical care attestation.: If time is entered above; I have spent that time in minutes in the direct care of this critically ill patient, excluding procedure time. ED Disposition Clinical Impression: URI (upper respiratory infection), Exudative pharyngitis Disposition: TO HOME OR SELFCARE Is pt being admited?: No Does the pt Need Aspirin: No Condition: Stable Instructions: Upper Respiratory Infection, Adult Additional Instructions: diet and activity as tolerated follow up with pcp referral below [facility] as discussed urgent care may be able to do rapid testing med as ordered today Prescriptions: Amoxicillin [Trimox CAP] 500 mg PO BID #20 capsule Referrals: LILLIAM DONALDSON MD [Staff Physician] - 3-5 Days Time of Disposition: 12:20
--- NOTE | 2020-11-21 12:21 | XRay Report ---
CHEST PA AND LATERAL VIEWS INDICATION: sob. COMPARISON: 10/27/2019 FINDINGS: Support devices: None. Heart: Normal. Lungs/Pleura: No acute pulmonary or pleural findings. IMPRESSION: 1. No acute findings. Signer Name: Wicho Pennington MD Signed: 11/21/2020 12:16 PM Workstation Name: [id number]
== END 2020-11-21 12:55 | disposition home or self-care (01) ==
LOC: ED 11:35
DX: N39.0 Urinary tract infection, site not specified (principal); J02.9 Acute pharyngitis, unspecified; F12.10 Cannabis abuse, uncomplicated; Z98.890 Other specified postprocedural states; Z79.899 Other long term (current) drug therapy
CPT/HCPCS: 71046; 99283